=== PATIENT | female | born 1980 | race African-American/Black ===

== ENCOUNTER 2017-11-04 20:26 | Emergency (ER) | payer SELFPAY ==
--- NOTE | 2017-11-04 21:14 | RAD ---
LEFT ANKLE THREE VIEWS: 11/04/17 HISTORY: Ankle pain, unable to bear weight. Some minimal arthritic changes of the ankle joint without significant joint space narrowing. Some min imal degenerative changes of the talonavicular joint are also noted. There is no signs of fracture. IMPRESSION: Minimal arthritic changes of the ankle. No acute findings. POS: [facility]
== END 2017-11-04 22:30 | disposition home or self-care (01) ==
LOC: ERS 20:26
DX: S93.402A Sprain of unspecified ligament of left ankle, initial encounter (principal); J45.909 Unspecified asthma, uncomplicated; J32.9 Chronic sinusitis, unspecified; X58.XXXA Exposure to other specified factors, initial encounter

== ENCOUNTER 2018-03-24 19:19 | Emergency (ER) | payer OTHER, SELFPAY ==
[2018-03-24 19:52] LABS: Hemoglobin 9.6 g/dL (12.0-16.0); Mean Corpuscular HGB CONC 30.8 g/dL (32.0-36.0); Mean Corpuscular Hemoglobin 21.5 pg (27.0-31.0); Mean Corpuscular Volume 69.6 fL (78.0-98.0); Mean Platelet Volume 8.1 fL (7.4-10.4); Platelet Count 337 thou/uL (130-400); RBC Distribution Width 14.6 % (11.5-14.5); Red Blood Cell (RBC) Count 4.46 mill/uL (4.20-5.40); White Blood Cell (WBC) Count 9.1 thou/uL (4.8-10.8)
[2018-03-24 20:00] LABS: ALT (SGPT) 10 U/L (8-55); AST (SGOT) 17 U/L (5-34); Alkaline Phosphatase 155 U/L (40-150); Anion Gap 11 mmol/L (10-20); BUN (Urea Nitrogen) 7 mg/dL (7.0-18.7); Bilirubin, Total 0.5 mg/dL (0.2-1.2); Calc. Creatinine Clearance 0 mL/min (70-130); Calcium 8.7 mg/dL (7.8-10.44); Carbon Dioxide 26 mmol/L (22-29); Chloride 105 mmol/L (98-107); Estimated GFR-MDRD Greater than 90; Globulin 3.9 g/dL (2.4-3.5); Glucose 112 mg/dL (70-105); Potassium 3.6 mmol/L (3.5-5.1); Protein, Total 7.9 g/dL (6.0-8.3); Sodium 138 mmol/L (136-145)
[2018-03-24 20:05] LABS: CKMB 0.7 ng/mL (0-6.6); Troponin I Less than 0.010 ng/mL (< 0.028)
[2018-03-24 20:14] LABS: #Eosinphils 0.2 thou/uL (0.0-0.7); #Lymphocytes 2.4 thou/uL (1.20-3.40); #Monocytes 0.4 thou/uL (0.11-0.59); %Basophils 0.4 % (0.0-1.0); %Eosinophils 2.5 % (0.0-10.0); %Lymphocytes 26.2 % (21.0-51.0); %Monocytes 4.5 % (0.0-10.0); %Neutrophils 66.5 % (42.0-75.0); Anisocytosis SLIGHT = 6-15 cells (100X) (0-5/hpf); MDiff Complete? YES; PLT Morphology Comment Appears Decreased
--- NOTE | 2018-03-24 20:22 | RAD ---
PORTABLE AP CHEST X-RAY 03/24/18 HISTORY: Chest pain. COMPARISON: 08/15/10 FINDINGS: The cardiac silhouette is magnified by projection but is stable from the prior study and does appear moderately enlarged. The pulmonary vasculature is within normal limits. The lungs are clear. There roy s been no interval change from prior exam. IMPRESSION: 1. No acute cardiopulmonary process. 2. Mild cardiomegaly. POS: [facility]
== END 2018-03-24 21:25 | disposition home or self-care (01) ==
LOC: ERS 19:19
DX: M94.0 Chondrocostal junction syndrome [Tietze] (principal); J45.909 Unspecified asthma, uncomplicated; D64.9 Anemia, unspecified; Z79.899 Other long term (current) drug therapy
CPT/HCPCS: 71045; 80053; 82553; 83880; 84484; 85025; 93005